=== PATIENT | female | born 1995 | race Caucasian/White ===

== ENCOUNTER → 2021-12-29 | Day surgery (SDC) | payer OTHER ==
[~2021-12-29] MED LIST: Flumazenil 0.1 MG/ML 10 ML MDV ONE; Ketamine 200 MG/20 ML MDV ONE; Lactated Ringers 1,000 ML IV SCH; Midazolam 1 MG/ML 2 ML SDV ONE; Ondansetron 4 MG/2 ML SDV ONE; Phenylephrine 1% 10 MG/ML SDV ONE; Propofol 200 MG/20 ML SDV ONE; fentaNYL 100 MCG/2 ML SDV ONE
== END ==
LOC: CC.SDS 09:31
PROVIDERS: ATTEND Family Medicine
DX: K52.9 Noninfective gastroenteritis and colitis, unspecified (principal); K50.111 Crohn's disease of large intestine with rectal bleeding; Z98.890 Other specified postprocedural states
CPT/HCPCS: 00811; J2250; J2370; J2405; J2704; J3010; J7120